=== PATIENT | female | born 1950 | race Hispanic/Latino ===

== ENCOUNTER 2020-07-02 17:30 | Emergency (ER) | payer MEDICARE, SELFPAY ==
[2020-07-02] VITALS (8 sets, daily range): BP systolic 162–227; BP diastolic 74–97; PULSE 64–80; RESP 13–22; TEMP 36.9; O2SAT 97–100; BMI 36.6
--- NOTE | 2020-07-02 21:32 | ED_ITS ---
HPI - Back Pain/Injury General Chief Complaint: Back Pain/Injury Stated Complaint: cant control her bowels Time Seen by Provider: 07/02/20 20:45 Source: patient Mode of arrival: Ambulatory Limitations: no limitations History of Present Illness HPI Narrative: 70F non smoker without significant medical history presents with the chief complaint of many months of worsening low back pain and radiation from her lower back and buttocks into her legs. She denies traumatic injury, fever, chills, IVDA, or blood thinners. She's seen her out of state PCP and is currently taking indomethacin and gabapentin without ongoing relief. She sometimes has some numbness or tingling, but denies any obvious weakness. She has no numbness in her groin. She denies foot drop, loss of control of her bladder, but has had 3 episodes of loose stools which she could not control. MD Complaint: back pain Onset (ago): month(s) Duration: constant Similar Symptoms Previously: Yes Location: lumbar spine Severity: moderate Quality: burning and stabbing Radiation: left leg and right leg Relieving factors: immobilization Exacerbating factors: movement Associated symptoms: fecal incontinence Related Data Allergies Allergy/AdvReac Type Severity Reaction Status Date / Time No Known Drug Allergies Allergy Verified 07/02/20 17:51 Review of Systems Constitutional Constitutional: Denies chills, Denies fatigue, Denies fever(s), Denies frequent falls, Denies lethargy and Denies weakness Eyes Eyes: Denies change in vision, Denies eye discharge, Denies irritation and Denies loss of vision ENT Ears, Nose, Mouth, and Throat: Denies change in voice, Denies dizziness, Denies neck pain, Denies sore throat and Denies throat swelling Cardiovascular Cardiovascular: Denies chest pain, Denies irregular heart rhythm, Denies lightheadedness, Denies palpitations, Denies dyspnea, Denies dyspnea on exertion and Denies orthopnea Respiratory Respiratory: Denies cough, Denies dyspnea, Denies dyspnea on exertion and Denies wheezing Gastrointestinal Gastrointestinal: Denies abdominal pain, Denies change in bowel habits, Denies diarrhea, Denies nausea and Denies vomiting Musculoskeletal Musculoskeletal: Reports back pain, Denies neck pain and Denies numbness Integumentary/Breasts Skin/Breast: Denies pruritus, Denies erythema, Denies rash and Denies wounds Neurologic Neurologic: Denies behavioral changes, Denies confusion, Denies dizziness, Denies frequent falls, Denies loss of vision, Denies numbness and Denies weakness Psychiatric Psychiatric: Denies anxiety, Denies behavioral changes, Denies confusion, Denies depression, Denies homicidal ideation and Denies suicidal ideation Endocrine Endocrine: Denies fatigue, Denies flushing and Denies palpitations Hematologic/Lymphatic Hematologic/Lymphatic: Denies easy bruising Allergic/Immunologic Allergic/Immunologic: Denies urticaria, Denies throat swelling and Denies wheezing Patient History Social History Smoking Status: Former smoker Smoking Status: Former smoker tobacco type: cigarettes alcohol intake frequency: 0-2 drinks per day Substance Use Type: marijuana Exam Narrative Exam Narrative: GENERAL: [70] year old patient appears stated age. Well- nourished, well-developed patient, in mild distress. HEAD: Atraumatic. Normocephalic. EYES: Pupils equal round and reactive. Extraocular motions intact. No scleral icterus. No injection or drainage. ENT: Nose without bleeding, purulent drainage. Throat without erythema, tonsillar hypertrophy or exudate. Airway patent. NECK: Trachea midline. Non tender CARDIOVASCULAR: Regular rate and rhythm without murmurs, gallops, or rubs. RESPIRATORY: Clear to auscultation. Breath sounds equal bilaterally. No wheezes, rales, or rhonchi. GASTROINTESTINAL: Abdomen soft, non-tender, nondistended. EXTREMITIES: No edema or joint tenderness. BACK: Lower lumbar pain in paraspinals, L>R. No midline pain or stepoff. Relf exes B/L (+2) in tact. Sensation in tact. No saddle anesthesia. B/L LE 5/5 strength. Rectal tone in tact (checked with patient permission and female nursing head of global strategic [employer] at the bedside) NEURO: AOx3. SKIN: No rash or erythema of visible areas Initial Vital Signs Initial Vital Signs: Vital Signs Temperature 98.5 F 07/02/20 17:45 Pulse Rate 75 07/02/20 17:45 Respiratory Rate 22 07/02/20 17:45 Blood Pressure 202/88 H 07/02/20 17:45 Pulse Oximetry 100 07/02/20 17:45 Course Orders Ordered: ED Orders 07/02/20 21:33 EKG-12 Lead Stat 07/02/20 21:42 CT lumbar spine w con Stat 07/02/20 22:15 Complete Blood Count AUTO DIFF Stat Comprehensive Metabolic Panel Stat Troponin & CK Cardiac Panel Stat Vital Signs Vital signs: Vital Signs - 8 hr 07/02/20 20:43 07/02/20 21:00 07/02/20 21:16 Pulse Rate 80 64 74 Respiratory Rate Blood Pressure 227/97 H 162/74 H Pulse Oximetry 97 97 97 07/02/20 21:30 07/02/20 22:00 07/02/20 22:30 Pulse Rate 64 66 65 Respiratory Rate 13 20 15 Blood Pressure Pulse Oximetry 98 98 07/02/20 23:00 Pulse Rate 73 Respiratory Rate 20 Blood Pressure Pulse Oximetry 97 MDM - Back Pain/Injury Lab Data Result diagrams: 07/02/20 22:15 07/02/20 22:15 Labs: Lab Results 07/02/20 07/02/20 Range/Units 22:15 22:15 WBC 8.3 (4.5-11.0) X10^3/uL RBC 3.56 L (4.0-5.2) X10^6/uL Hgb 11.4 L (12.0-16.0) g/dL Hct 33.9 L (36-46) % MCV 95.2 (80-100) fL MCH 32.0 (26-34) PG MCHC 33.7 (30-36) % RDW 13.5 (11.6-14.8) % Plt Count 273 (150-400) X10^3/uL Neut % (Auto) 58.0 (50-75) % Lymph % (Auto) 32.6 (25-40) % Waldo % (Auto) 6.3 (3-14) % Eos % (Auto) 2.5 (2-4) % Baso % (Auto) 0.6 (0-2) % Neut # (Auto) 4800 (9937-9367) /uL Lymph # (Auto) 2700 (0020-7731) /uL Waldo # (Auto) 500 (0-900) /uL Eos # (Auto) 200 (0-450) /uL Baso # (Auto) 100 (0-100) /uL Sodium 135 L (137-145) mmol/L Potassium 3.5 (3.4-5.1) mmol/L Chloride 103 (98-107) mmol/L Carbon Dioxide 26 (22-32) mmol/L BUN 21 H (7-17) mg/dL Creatinine 0.67 (0.52-1.04) mg/dL Estimated GFR > 60.0 (>60) mL/min BUN/Creatinine Ratio 31.3 H (6-22) Glucose 97 (80-110) mg/dL Calcium 9.3 (8.4-10.2) mg/dL Total Bilirubin 0.5 (0.2-1.3) mg/dL AST 30 (14-36) IU/L ALT 23 (<35) IU/L Alkaline Phosphatase 138 H (38-126) U/L Total Creatine Kinase 92 (30-135) U/L CK-MB (CK-2) TNP CK-MB (CK-2) Rel Index TNP Troponin I < 0.012 (0.01-0.034) ng/mL Total Protein 7.2 (6.3-8.2) g/dL Albumin 4.3 (3.5-5.0) g/dL Globulin 2.9 (1.7-4.1) g/dL Albumin/Globulin Ratio 1.5 (1.0-2.8) Imaging Data L Spine: Radiologist's Impression: Disc protrusion at L3/L4. No evidence of abscess or bleeding. MDM Narrative Medical decision making narrative: Patient with back pain and radiculopathy. No exam findings consistent with cauda equina. Likely a disc problem. Extensive discussion with patient regarding return precautions and questions answered to her apparent satisfaction. Discussed close follow up with PCP and need for lumbar MRI as an outpatient. Discharge Plan Departure Patient Disposition: Home Clinical Impression: Lumbar radiculopathy Discharge Date/Time: 07/03/20 00:30 Instructions: DI for Lumbar Radiculopathy Activity Restrictions/Additional Instructions: *You have been diagnosed with [lumbar radiculopathy. Exam and imaging with suggest a diagnosis such as cauda equina is exceedingly unlikely.] *What to do: *Take medications as directed *Follow up with your primary care provider in 2-3 days, call for an appointment. Let them know you were seen in the Emergency Department and that we ask that you be seen in follow up *Return to ER if you should have any new, worsening or concerning symptoms, such as [worsening pain, leg weakness, loss of control of bowel or bladder, or other bothersome symptoms ]
--- NOTE | 2020-07-02 21:42 | DI.CT.S_ITS ---
PROCEDURE: CT LUMBAR SPINE W CON INDICATIONS: severe lumbar pain TECHNIQUE: After the administration of intravenous Isovue contrast, 3 mm thick sections acquired through the levels of interest. Sagittal and coronal reformats were then constructed. For radiation dose reduction, the following was used: automated exposure control. COMPARISON: None. FINDINGS: Image quality: Excellent. Bones: No displaced fractures are seen. No suspicious lytic or blastic lesions are seen. There is mild retrolisthesis seen at the L2-3 level with mild anterolisthesis seen at L4-5. No associated pars defects are seen. Mild levoconvex scoliotic curvature is noted. At L2-3, there is moderate to severe disc space narrowing seen on the right side, with associated endplate irregularity and sclerosis. Vacuum disc phenomenon is seen at this level. At least moderate disc bulge is seen, which is eccentric to the right. There is a central disc protrusion. There is at least moderate bilateral neural foraminal narrowing and at least moderate central canal narrowing seen. At L3-4, the disc height is well preserved. Moderate prominent disc bulge is seen, with a central disc protrusion. Moderate bilateral neural foraminal narrowing is seen. Moderate to severe central canal narrowing is seen. At L4-5, grade 1 anterolisthesis is seen. The disc height is well preserved. Moderate prominent disc bulge is seen, with a central disc protrusion. Prominent facet hypertrophy is seen. At least moderate bilateral neural foraminal narrowing is seen, right worse than left. Moderate to severe central canal narrowing is seen. At L5-S1, the disc height is well preserved. Moderate disc bulge is seen, which is eccentric to the left. Moderate facet joint hypertrophy is seen. There is moderate right-sided and moderate to severe left-sided neural foraminal narrowing seen. Mild to moderate central canal narrowing is seen. No abnormal enhancement can be seen. Soft tissues: Atherosclerotic calcification is noted. A nonobstructing right-sided kidney stone is seen measuring 5 mm. No dilated loops of bowel are seen. IMPRESSION: Focal L2-3 level degenerative change, without a pb, acute abnormality this seen. Milder degenerative changes are seen elsewhere. No masses or abnormal enhancement can be seen. Nonobstructing right-sided kidney stone incidentally noted. Note: No significant discrepancy from the preliminary report. Dictated by: Edi Jay M.D. on 07/03/2020 at 8:24 Approved by: Edi Jay M.D. on 07/03/2020 at 8:30
--- NOTE | 2020-07-02 21:44 | PC.NURSE ---
This WHIP SAWYER was stand by during rectal exam
[2020-07-02 22:27] LABS: Add Manual Diff / Slide Review NO; Basophils Absolute Auto 100 /uL (0-100); Basophils Percent Auto 0.6 % (0-2); Eosinophils Absolute Auto 200 /uL (0-450); Eosinophils Percent Auto 2.5 % (2-4); Hematocrit 33.9 % (36-46); Hemoglobin 11.4 g/dL (12.0-16.0); Lymphocytes Absolute Auto 2700 /uL (1100-4500); Lymphocytes Percent Auto 32.6 % (25-40); Mean Corpuscular HGB Conc 33.7 % (30-36); Mean Corpuscular Volume 95.2 fL (80-100); Monocytes Absolute Auto 500 /uL (0-900); Monocytes Percent Auto 6.3 % (3-14); Neutrophils Absolute Auto 4800 /uL (1500-7000); Platelet Count 273 X10^3/uL (150-400); Red Blood Cell Count 3.56 X10^6/uL (4.0-5.2); Red Cell Distribution Width 13.5 % (11.6-14.8); White Blood Cell Count 8.3 X10^3/uL (4.5-11.0)
[2020-07-02 22:34] LABS: Alanine Aminotransferase 23 IU/L (<35); Albumin 4.3 g/dL (3.5-5.0); Albumin Globulin Ratio 1.5 (1.0-2.8); Alkaline Phosphatase 138 U/L (38-126); Aspartate Aminotransferase 30 IU/L (14-36); BUN Creatinine Ratio 31.3 (6-22); Bilirubin Total 0.5 mg/dL (0.2-1.3); Blood Urea Nitrogen 21 mg/dL (7-17); Calcium 9.3 mg/dL (8.4-10.2); Carbon Dioxide 26 mmol/L (22-32); Chloride 103 mmol/L (98-107); Creatine Kinase 92 U/L (30-135); Estimated Glomerular Filt Rate > 60.0 mL/min (>60); Globulin 2.9 g/dL (1.7-4.1); Glucose 97 mg/dL (80-110); HEMOLYSIS < 15 (0-50); Potassium 3.5 mmol/L (3.4-5.1); Sodium 135 mmol/L (137-145); Total Protein 7.2 g/dL (6.3-8.2)
--- NOTE | 2020-07-02 22:37 | PC.NURSE ---
PT states intermittent pain in buttock that radiates down both legs at times since 04/2020, states no pain at present and has been diagnosed with sciatica and started on gabapentin recently however has not taken gabapentin today because she was coming here. Pt denies pain at present and states its worse with movement. Pt also states recent incontinent episodes are increasing in both urine and bowels.
[2020-07-02 22:46] LABS: Troponin I < 0.012 ng/mL (0.01-0.034)
== END 2020-07-03 00:30 | disposition home or self-care (01) ==
PROVIDERS: Emergency Provider Emergency Medicine
DX: M54.16 Radiculopathy, lumbar region (principal)
CPT/HCPCS: 36415; 72132; 80053; 82550; 84484; 85025; 93005; 93010; 99283; 99284

== ENCOUNTER 2024-12-25 08:12 | Day surgery (SDC) | payer MEDICARE, SELFPAY ==
--- NOTE | 2024-12-25 | PATH_ITS ---
[facility] Accession Number: [id number] No. of containers..01 Tissue . 01 Material submitted: . colon - TRANSVERSE POLYP . 01 Diagnosis: TRANSVERSE POLYP: Tubular adenoma. STO 12/29/2024 1213 Local . 01 Electronically signed: . Raffy Hernández MD, Pathologist NPI- [id number] . 01 Gross description: . Received in formalin with two patient identifiers and transverse polyp, are multiple bunn to orange possible soft tissue fragments mixed with mucoid material aggregating to 1.6 x 0.9 x 0.2 cm. Filtered and submitted in A1. ([id number]) /MRV 12/29/2024 1213 Local . 01 Pathologist provided ICD-10: D12.3 . 01 CPT . 260935 Specimen Comment: A courtesy copy of this report has been sent to [phone] Performed at: [address] [id number] MD Raffy Hernández MD Phone: [phone]
[2024-12-25 09:15] VITALS: BP 175/90; PULSE 90; RESP 15; TEMP 36.3; O2SAT 94
[2024-12-25] MEDS: LACTATED RINGERS 1,000 ML 42 ML IV (09:20)
--- NOTE | 2024-12-25 09:37 | PM.HP.IH.1 ---
History of Present Illness History of Present Illness Date Patient Seen: 12/25/24 Time Patient Seen: 09:38 Chief complaint: SD Narrative: Muriel is a 74-year-old woman who presents for a colonoscopy. She has never had one before. She did have a rather traumatic experience with a hemorrhoidectomy surgery many years ago. [facility] Medical History Rash Carotid artery disease Preventative health care Asthma Generalized anxiety disorder GERD (gastroesophageal reflux disease) Hyperlipidemia Hypertension Surgical History History of total right knee replacement (TKR) Social History Smoking Status: Former smoker Meds Home Medications and Allergies Home Medications Medication Instructions Recorded Confirmed Type albuterol sulfate 90 mcg/actuation 2 puff inhalation Q4-6H PRN 08/29/24 10/15/24 History aerosol inhaler aspirin 81 mg chewable tablet 81 mg PO DAILY 08/29/24 10/15/24 History atorvastatin 40 mg tablet 40 mg PO BEDTIME 08/29/24 10/15/24 History buspirone 5 mg tablet 5 mg PO BID #60 tabs 08/29/24 10/15/24 Rx cholecalciferol (vitamin D3) 25 25 mcg PO DAILY 08/29/24 10/15/24 History mcg (1,000 unit) capsule hydralazine 50 mg tablet 50 mg PO TID 08/29/24 10/15/24 History hydroxyzine HCl 25 mg tablet 25 mg PO TID PRN 08/29/24 10/15/24 History losartan 100 1 tab PO DAILY 08/29/24 10/15/24 History mg-hydrochlorothiazide 25 mg tablet omeprazole magnesium 20 mg 20 mg PO DAILY 08/29/24 10/15/24 History capsule,delayed release ([employer] (omeprazole)) fluticasone propionate 50 2 spray intranasal DAILY #16 grams 09/22/24 10/15/24 Rx mcg/actuation nasal spray,suspension (Allergy Relief (fluticasone)) ketoconazole 200 mg tablet 200 mg PO DAILY #14 tabs 10/01/24 10/15/24 Rx triamcinolone acetonide 0.1 % 1 applic topical BID #15 grams 10/01/24 10/15/24 Rx topical cream sodium,potassium,mag sulfates 17.5 See Rx Instructions PO .COMPLEX 11/25/24 Rx gram-3.13 gram-1.6 gram oral soln #354 mL (Suprep Bowel Prep Kit) fluoxetine 20 mg capsule 40 mg (2 x 20 mg) PO DAILY #180 12/05/24 Rx caps Allergies Allergy/AdvReac Type Severity Reaction Status Date / Time amlodipine Allergy Unknown swelling Verified 10/15/24 10:59 metoprolol Allergy Unknown swelling Verified 10/15/24 10:59 Exam Vital Signs (past 8 hours): - 12/25/24 09:15 Temperature 97.4 F L Pulse Rate 90 Respiratory Rate 15 Blood Pressure 175/90 H Pulse Oximetry 94 Oxygen Delivery Method Room Air Oxygen Delivery Method Room Air Const General: No acute distress Resp Effort & Inspection: normal respiratory effort Assessment & Plan Assessment and plan (1) Colon cancer screening: Status: Acute Plan Colonoscopy Time-Based Coding :: [TOTAL MINUTES] spent with patient and on the chart (including review of chart, obtaining history, exam, reviewing outside data, placing orders, documenting exam and treatment plan, and counseling patient) on [DATE]. [employer]EE G[employer] Officer Document charge(s): No
[2024-12-25 10:13] VITALS: BP 117/41; PULSE 71; RESP 14; TEMP 36.4; O2SAT 97
--- NOTE | 2024-12-25 10:14 | PM.OP.COLON ---
Operative Date/Time/Diagnoses Date of procedure: 12/25/24 Time of procedure: 10:14 Pre-op diagnosis: Colon cancer screening Post-op diagnosis: same Procedure & Clinicians Study performed: Colonoscopy Same procedure as scheduled: Yes Surgeon: Arun Anguiano Procedure Notes Procedure in detail: Surgeon: Arun Anguiano MD Anesthesia: Jammie Be CRNA Procedure: The patient was brought to the endoscopy suite, placed in left lateral decubitus position. The patient was connected to monitoring devices. A time-out was performed. Sedation was administered. Once the patient was adequately sedated, a digital rectal exam was performed and was normal. The scope was then inserted and advanced to the cecum where the appendiceal orifice was identified and photographed. The scope was then slowly withdrawn over greater than 6 minutes. The mucosa was thoroughly inspected. There was a 5 mm polyp in the transverse colon removed with a cold snare. The scope was retroflexed in the rectum. No other abnormalities were found. The scope was straightened and removed. The patient was awakened and brought to recovery. Scope withdrawal time: 8 minutes Sedation time: 15 minutes EBL: 2 mL Findings: 5 mm transverse colon polyp Post-procedure Disposition: PACU
[2024-12-25 10:18] VITALS: BP 134/58; PULSE 77; RESP 16; O2SAT 97
[2024-12-25 10:23] VITALS: BP 136/73; PULSE 84; RESP 12; O2SAT 99
[2024-12-25 10:26] VITALS: BP 153/58; PULSE 80; RESP 14; TEMP 36.2; O2SAT 98
--- NOTE | 2024-12-25 10:36 | SUR.PHASEII ---
Patient discharged in stable condition with all belongings returned, including eyeglasses.
== END 2024-12-25 10:36 | disposition home or self-care (01) ==
PROVIDERS: PCP Family Medicine; Referring Provider Surgery; Visit Provider Surgery
PROC: 0DJD8ZZ Inspection of Lower Intestinal Tract, Via Natural or Artificial Opening Endoscopic (ICD-10-PCS; CPT 45378; principal; 2024-12-25 10:00)
DX: Z12.11 Encounter for screening for malignant neoplasm of colon (principal); D12.3 Benign neoplasm of transverse colon
CPT/HCPCS: 45385; J2704

== ENCOUNTER → 2025-04-15 15:46 | Outpatient (CLI) | payer MEDICARE, SELFPAY ==
--- NOTE | 2025-04-15 15:48 | DI.US.S_ITS ---
PROCEDURE: US CAROTID DOPPLER BI INDICATIONS: carotid artery disease TECHNIQUE: Color and pulse Doppler interrogation was performed of both carotid systems, with image documentation and velocity measurements. COMPARISON: None. FINDINGS: Stenosis calculations are based on SRU (Society of Radiologists in Ultrasound) criteria. Right side: Brachial blood pressure: 159/7 mm Hg. Common carotid artery peak systolic velocity: 81 cm/sec. Internal carotid artery peak systolic velocity: 106 cm/sec. Internal carotid artery end diastolic velocity: 24 cm/sec. External carotid artery peak systolic velocity: 126 cm/sec. ICA/CCA peak systolic ratio: 1.3 . Marvin scale imaging description: Mild to moderate plaque at bifurcation Percent internal carotid artery stenosis: Less than 50% . Vertebral artery: Flow direction is antegrade. Left side: Brachial blood pressure: 165/7 mm Hg. Common carotid artery peak systolic velocity: 99 cm/sec. Internal carotid artery peak systolic velocity: 221 cm/sec. Internal carotid artery end diastolic velocity: 32 cm/sec. External carotid artery peak systolic velocity: 191 cm/sec. ICA/CCA peak systolic ratio: 2.2 Marvin scale imaging description: Moderate plaque Percent internal carotid artery stenosis: 50-69% stenosis . Vertebral artery: Flow direction is antegrade. IMPRESSION: 1. In the right carotid artery, there is less than 50% stenosis based on peak systolic velocity criteria. 2. In the left carotid artery, there is 50-69% stenosis based on peak systolic velocity criteria. 3. Antegrade vertebral arteries. Dictated by: Jessica Ho M.D. on 04/16/2025 at 12:27 Approved by: Jessica Ho M.D. on 04/16/2025 at 12:30
== END ==
LOC: US 15:47
PROVIDERS: PCP Family Medicine; Referring Provider Family Medicine; Visit Provider Family Medicine
DX: I77.9 Disorder of arteries and arterioles, unspecified (principal); I65.23 Occlusion and stenosis of bilateral carotid arteries
CPT/HCPCS: 93880

== ENCOUNTER → 2025-04-17 08:45 | Outpatient (CLI) | payer MEDICARE, SELFPAY ==
--- NOTE | 2025-04-17 09:19 | DI.ECHO.S_ITS ---
[facility] : : [address] [place] : : [id number] : : Phone: [phone] Echocardiogram Report + + :Name: FERNANDO JAMESON Study Date: 04/17/2025 Height: 61 in : :[facility] ReadingLocation: Weight: 175 lb : : Gender: Female BSA: 1.8 m2 : :: 1950 Age: 75 yrs BP: 183/83 mmHg: :Reason For Study: HEART MURMUR, HYPERTENSION : :Ordering Physician: ALPESH, : :SHERLYN Performed By: Carolyn Nichols : :Referring: SHERLYN BETTS : + + Interpretation Summary The ejection fraction is estimated to be 60-65%. There is mild mitral regurgitation. There is mild tricuspid regurgitation. The right ventricular systolic pressure is estimated to be at least 30 mmHg based on an estimated right atrial pressure of 3 mm Hg. Procedure: A two-dimensional transthoracic echocardiogram with color flow and Doppler was performed. The study quality was technically adequate. There is no prior echocardiogram noted for this patient. The patient was in sinus bradycardia with heart rates between 56-62 bpm during the exam. Left Ventricle: The left ventricle is normal in size and wall thickness. The ejection fraction is estimated to be 60-65%. Left ventricular wall motion is normal. Right Ventricle: The right ventricle is normal in size and function. Atria: The left atrial size is normal. Right atrial size is normal. There is no Doppler evidence for an interatrial shunt. Mitral Valve: The mitral valve leaflets appear to open well. There is mild mitral regurgitation. Aortic Valve: The aortic valve is trileaflet. There is no aortic valve stenosis. There is trace aortic regurgitation. Tricuspid Valve: The tricuspid valve leaflets are thin and pliable. There is mild tricuspid regurgitation. The right ventricular systolic pressure is estimated to be at least 30 mmHg based on an estimated right atrial pressure of 3 mm Hg. Pulmonic Valve: The pulmonic valve leaflets are thin and pliable; valve motion is normal. There is no pulmonic valvular regurgitation. Great Vessels: The aortic root is normal size. The dimensions of the ascending aorta are normal. The IVC is of normal diameter and collapses greater than 50% with a sniff. This suggests a low right atrial pressure of 3 mm Hg. Pericardium/ Pleura There is no pericardial effusion. There is no pleural effusion. MMode/2D Measurements & Calculations LVIDd: 4.5 cm LVOT diam: 2.0 cm LVIDs: 2.8 cm Ao root diam: 2.7 cm FS: 37.5 % asc Aorta Diam: 2.9 cm IVSd: 0.97 cm LVPWd: 0.99 cm LV martinez. diameter/BSA (cm/m^2): 2.5 LV sys. diameter/BSA (cm/m^2): 1.6 LA A2 area: 24.3 cm2 RA long axis: 4.6 cm LA A4 area: 14.4 cm2 RA area: 12.4 cm2 LA length (vol): 5.2 cm RA vol: 28.7 ml LA vol: 57.5 ml RA : 16.1 ml/m2 LA vol index: 32.2 ml/m2 IVC diam: 1.3 cm RVD1 (basal): 3.1 cm RVD2 (mid): 2.5 cm TAPSE: 2.5 cm Doppler Measurements & Calculations Ao V2 max: 174.6 cm/sec LVOT Max Marciano: 109.8 cm/sec Ao V2 mean: 120.5 cm/sec LV V1 max P.8 mmHg Ao max P.2 mmHg LV V1 VTI: 27.9 cm Ao mean P.4 mmHg ASHLIE(I,D): 2.1 cm2 Ao V2 VTI: 40.9 cm ASHLIE(V,D): 2.0 cm2 sev ratio: 0.68 ASHLIE indexed to BSA (cm^2/m^2): 1.2 MV E max marciano: 91.9 cm/sec TR max marciano: 261.7 cm/sec MV A max marciano: 94.9 cm/sec TR max P.4 mmHg MV E/A: 0.97 PA V2 max: 124.1 cm/sec Med Peak E' Marciano: 8.0 cm/sec PA V2 mean: 86.7 cm/sec E/E' med: 11.5 PA mean P.4 mmHg Lat Peak E' Marciano: 7.6 cm/sec PA pr(Accel): 14.8 mmHg E/E' lat: 12.1 E/e' average: 11.8 MV dec time: 0.16 sec SV(LVOT): 87.8 ml Reading Physician:05:36 PM
== END ==
LOC: ECHO 08:45
PROVIDERS: PCP Family Medicine; Referring Provider Family Medicine; Visit Provider Family Medicine
DX: Z00.00 Encounter for general adult medical examination without abnormal findings (principal); I77.9 Disorder of arteries and arterioles, unspecified; R01.1 Cardiac murmur, unspecified; E78.5 Hyperlipidemia, unspecified; F41.1 Generalized anxiety disorder; K21.9 Gastro-esophageal reflux disease without esophagitis; I10 Essential (primary) hypertension
CPT/HCPCS: 36415; 80053; 80061; 83036; 84443; 85025; 93306

== ENCOUNTER → 2025-04-17 10:14 | Outpatient (CLI) | payer MEDICARE, SELFPAY ==
[2025-04-17 10:52] LABS: Add Manual Diff / Slide Review NO; Basophils Absolute Auto 0 /uL (0-100); Basophils Percent Auto 0.5 % (0-2); Eosinophils Absolute Auto 100 /uL (0-450); Eosinophils Percent Auto 2.3 % (2-4); Hematocrit 35.2 % (36-46); Hemoglobin 12.2 g/dL (12.0-16.0); Lymphocytes Absolute Auto 1800 /uL (1100-4500); Lymphocytes Percent Auto 32.8 % (25-40); Mean Corpuscular HGB Conc 34.5 % (30-36); Mean Corpuscular Volume 95.7 fL (80-100); Monocytes Absolute Auto 400 /uL (0-900); Monocytes Percent Auto 8.1 % (3-14); Neutrophils Absolute Auto 3000 /uL (1500-7000); Neutrophils Percent Auto 56.3 % (50-75); Platelet Count 252 X10^3/uL (150-400); Red Blood Cell Count 3.68 X10^6/uL (4.0-5.2); Red Cell Distribution Width 13.2 % (11.6-14.8); White Blood Cell Count 5.4 X10^3/uL (4.5-11.0)
[2025-04-17 11:28] LABS: Alanine Aminotransferase 12 IU/L (<35); Albumin 4.6 g/dL (3.5-5.0); Albumin Globulin Ratio 1.9 (1.0-2.8); Alkaline Phosphatase 111 U/L (38-126); Aspartate Aminotransferase 23 IU/L (14-36); BUN Creatinine Ratio 42.1 (6-22); Bilirubin Total 0.6 mg/dL (0.2-1.3); Blood Urea Nitrogen 24 mg/dL (7-17); Carbon Dioxide 30 mmol/L (22-32); Chloride 100 mmol/L (98-107); Cholesterol 161 mg/dL (140-199); Estimated Glomerular Filt Rate > 60 mL/min (>60); Globulin 2.4 g/dL (1.7-4.1); Glucose 79 mg/dL (70-99); HDL Cholesterol 73 mg/dL (40-60); HEMOLYSIS < 15 (0-50); LDL Cholesterol Calculated 70 mg/dL (<100); Sodium 138 mmol/L (137-145); Triglycerides 89 mg/dL (35-150)
[2025-04-17 11:57] LABS: TSH w/ Reflex to FT4 1.23 uIU/mL (0.47-4.68)
[2025-04-17 13:04] LABS: Hemoglobin A1C% w Est Avg Glu 5.2 % (4.0-6.0)
== END ==
PROVIDERS: PCP Family Medicine; Referring Provider Family Medicine; Visit Provider Family Medicine
DX: Z00.00 Encounter for general adult medical examination without abnormal findings (principal); I77.9 Disorder of arteries and arterioles, unspecified; E78.5 Hyperlipidemia, unspecified; F41.1 Generalized anxiety disorder; K21.9 Gastro-esophageal reflux disease without esophagitis; I10 Essential (primary) hypertension
CPT/HCPCS: 36415; 80053; 80061; 83036; 84443; 85025

== ENCOUNTER → 2025-05-19 13:18 | Outpatient (CLI) | payer MEDICARE, SELFPAY ==
--- NOTE | 2025-05-19 13:20 | DI.RAD.S_ITS ---
PROCEDURE: XR KNEE LT 3V INDICATIONS: Progressive left knee pain TECHNIQUE: 3 views of the knee were acquired. COMPARISON: None. FINDINGS: Bones: No fractures or dislocations. No suspicious bony lesions. Moderate tricompartmental arthritic changes most severe medially and in the patellofemoral compartment. Chondrocalcinosis is present. Periarticular osteophytes. No erosions. Mild lateral patellar subluxation. Soft tissues: Mild joint effusion. No suspicious soft tissue calcifications. IMPRESSION: Tricompartmental arthritic changes. Dictated by: Jessica Ho M.D. on 05/19/2025 at 18:09 Approved by: Jessica Ho M.D. on 05/19/2025 at 18:09
== END ==
PROVIDERS: PCP Family Medicine; Referring Provider Family Medicine; Visit Provider Family Medicine
DX: S83.012A Lateral subluxation of left patella, initial encounter (principal); M11.262 Other chondrocalcinosis, left knee; M25.562 Pain in left knee; M25.462 Effusion, left knee
CPT/HCPCS: 73562

== ENCOUNTER → 2025-05-28 11:47 | Outpatient (CLI) | payer MEDICARE, SELFPAY ==
--- NOTE | 2025-05-28 11:48 | DI.MG.S_ITS ---
MM screening mammo BI: 05/28/2025. BI-RADS: 0 CLINICAL: 75-year old female for bilateral screening mammogram. Tyrer-Cuzick lifetime risk of 3.2%. No personal or first-degree family history of breast cancer. Current reported family history of breast cancer: maternal grandmother and maternal aunt. PRIOR EXAMS: 04/21/2022, 05/10/2019. MAMMOGRAPHY TECHNIQUE: 2D and 3D (tomosynthesis) digital mammographic views obtained, with additional images as needed for full coverage. Current study was also evaluated with a Computer Aided Detection (CAD) system. DENSITY B. There are scattered areas of fibroglandular density. MAMMOGRAPHY FINDINGS Right: CC only, Outer, Middle depth: Asymmetry needing additional imaging evaluation. This appears more prominent compared to the 04/21/2022 study. Left: No suspicious mass, asymmetry, microcalcification, or other abnormality seen. IMPRESSION: Right (Asymmetry): CC only, Outer, Middle depth * Incomplete - asymmetry needing additional imaging evaluation. Left * No evidence of malignancy. RECOMMENDATIONS Right: CC only, Outer, Middle depth * Further evaluation with diagnostic mammography and diagnostic ultrasound. Ultrasound to be performed only if needed. OVERALL ASSESSMENT CATEGORY BI-RADS-0: Incomplete - Need Additional Imaging Evaluation. ELECTRONICALLY SIGNED: Carmella Fox M.D. on 05/29/2025 at 05:28:04 PM PT Interpreting Station ID: [id number]
== END ==
PROVIDERS: PCP Family Medicine; Referring Provider Family Medicine; Visit Provider Family Medicine
DX: Z12.31 Encounter for screening mammogram for malignant neoplasm of breast (principal); Z80.3 Family history of malignant neoplasm of breast
CPT/HCPCS: 77063; 77067

== ENCOUNTER → 2025-06-17 19:11 | Outpatient (CLI) | payer MEDICARE, SELFPAY ==
--- NOTE | 2025-06-17 19:14 | DI.MRI.S_ITS ---
PROCEDURE: MR HEAD/BRAIN WO/W CON INDICATIONS: concern for neoplasm TECHNIQUE: Noncontrast axial T1 spin echo, axial T2 fast spin echo, sagittal and axial FLAIR, coronal T2 fast spin echo, axial gradient echo, axial diffusion and ADC through the brain. After the administration of contrast, axial and coronal and sagittal T1 spin echo with fat saturation through the brain. COMPARISON: None. FINDINGS: Image quality: Excellent. CSF spaces: Basal cisterns are patent. No extra-axial fluid collections. Ventricles are normal in size and shape. Brain: No midline shift. No intracranial bleeds or masses. No abnormal intracranial enhancement. There is cerebral volume loss for age. There is periventricular white matter chronic small vessel ischemic change. The brainstem appears normal. Diffusion-weighted images demonstrate no acute infarct. 7 mm Focus of CSF signal is present in the left anterior temporal lobe with mild surrounding FLAIR signal. There is no appreciable enhancement. Normal intravascular flow voids are present. Skull and face: Calvarial marrow is normal in signal. Orbits appear normal. Sinuses: Sinuses and mastoids appear clear. IMPRESSION: 7 mm left anterior temporal focus CSF signal with surrounding FLAIR hyperintensity as described above. No enhancement. While this could represent a focus of prior infarction, the circumscribed appearance of FLAIR signal raises differential of potentially low-grade malignancy, particularly in the absence of enhancement. No priors are available for comparison. Further evaluation with spectroscopy or 8 week follow-up may be obtained. Dictated by: Jessica Ho M.D. on 06/17/2025 at 20:47 Approved by: Jessica Ho M.D. on 06/17/2025 at 20:52
== END ==
LOC: MRI 19:12
PROVIDERS: PCP Family Medicine; Referring Provider Family Medicine; Visit Provider Family Medicine
DX: R93.0 Abnormal findings on diagnostic imaging of skull and head, not elsewhere classified (principal)
CPT/HCPCS: 70553; A9579